=== PATIENT | male | born 1960 | race Caucasian/White ===

== ENCOUNTER 2018-12-29 13:53 | Observation (INO) | payer MEDICAID, SELFPAY ==
[2018-12-29] VITALS (13 sets, daily range): BP systolic 104–138; BP diastolic 62–107; PULSE 75–85; RESP 15–20; TEMP 36.6–36.8; O2SAT 93–100; BMI 31.3; BMI 30.2
--- NOTE | 2018-12-29 13:55 | CT_ITS ---
STUDY: CTA OF THE BRAIN REASON FOR EXAM: Male, 58 years old. Possible stroke. RADIATION DOSAGE (If Supplied By Facility): CTDIvol = ( 18.27 ) mGy, DLP = ( 847.55 ) mGycm TECHNIQUE: CT angiography was performed with a multi-detector CT scanner. Data acquisition was obtained from the skull base through the vertex following intravenous administration of 100Ml IV Isovue 370. MIP images were reconstructed from the axial data set. Post-processing of the angiographic images was performed, with multiplanar reformation and 3D reconstruction. Individualized dose optimization techniques were used for this CT. COMPARISON: None. FINDINGS: Normal bilateral petrous carotid arteries. There is calcified plaque formation of the right cavernous carotid artery, without a cross-sectional luminal stenosis. There is calcified plaque formation of the left cavernous carotid artery, without a cross-sectional luminal stenosis. Normal right A1 segments of the anterior cerebral artery. Normal left A1 segments of the anterior cerebral artery. Normal intact anterior communicating artery (ACOM). Normal bilateral A2 segments of the anterior cerebral arteries. Normal right M1 and M2 segments of the middle cerebral arteries, with a normal M1 bifurcation. Normal left M1 and M2 segments of the middle cerebral arteries, with a normal M1 bifurcation. Normal right posterior communicating artery (PCOM). Normal left posterior communicating artery (PCOM). Normal bilateral vertebral arteries. Normal basilar artery with a normal basilar bifurcation. The visualized bilateral superior cerebellar (SCA) arteries are normal. Normal bilateral P1, P2 and visualized P3 segments of the posterior cerebral arteries. There is no demonstrated aneurysm of the samish of [place]. There is no demonstrated abnormality of the visualized brain. CT/CTA Head W/WO Contrast IMPRESSION: Normal samish of [place] without a demonstrated aneurysm or hemodynamically significant stenosis. Electronically Signed: Osiel Zhong, at 14:35 EDT , Service support ,
--- NOTE | 2018-12-29 13:55 | EKG12_ITS ---
Test Reason : CP/STROKE TEAM Blood Pressure : / mmHG Vent. Rate : 079 BPM Atrial Rate : 079 BPM P-R Int : 142 ms QRS Dur : 128 ms QT Int : 406 ms P-R-T Axes : 018 -17 004 degrees QTc Int : 465 ms Normal sinus rhythm Right bundle branch block Abnormal ECG Confirmed by JARRET ROSA, HOLGER ([id number]), mapping editor VIOLETA MOURA ([id number]) on 12/30/2018 1:42:45 PM Referred By: TONNY Confirmed By:HOLGER WHEAT MD
--- NOTE | 2018-12-29 13:55 | CT_ITS ---
STUDY: CTA NECK WITH CONTRAST REASON FOR EXAM: Male, 58 years old. Possible stroke. RADIATION DOSAGE (If Supplied By Facility): CTDIvol = ( 18.27 ) mGy, DLP = ( 847.55 ) mGycm TECHNIQUE: CT angiography with multi-detector data acquisition was performed from the aortic arch to the skull base following intravenous administration of 100Ml IV Isovue 370. MIP images were reconstructed from the axial data set. Post-processing of the angiographic images was performed, with multiplanar reformation and 3D reconstruction. Individualized dose optimization techniques were used for this CT. COMPARISON: None. FINDINGS: AORTIC ARCH: Normal visualized aortic arch. Normal origins of the brachiocephalic, left common carotid, and left subclavian arteries. RIGHT CAROTID ARTERIES: Normal right common carotid artery (CCA). Normal right common carotid bulb. Normal origin of the right internal carotid (ICA) artery without a hemodynamically significant stenosis. Normal visualized cervical portion of the right internal carotid artery. Normal origin of the right external carotid artery (ECA). LEFT CAROTID ARTERIES: Normal left common carotid artery (CCA). Normal left common carotid bulb. Normal origin of the left internal carotid (ICA) artery without a hemodynamically significant stenosis. Normal visualized cervical portion of the left internal carotid artery. Normal origin of the left external carotid artery (ECA). VERTEBRAL ARTERIES: There is enhancement within the bilateral vertebral arteries with a small right vertebral artery, and a dominant left vertebral artery. CT/CTA Neck W/WO Contrast IMPRESSION: Normal bilateral cervical carotid and vertebral arteries. Electronically Signed: Osiel Zhong, at 14:36 EDT , Service support ,
--- NOTE | 2018-12-29 13:55 | CT_ITS ---
STUDY: CT BRAIN WITHOUT CONTRAST REASON FOR EXAM: Male, 58 years old. Stroke. RADIATION DOSAGE (If Supplied By Facility): CTDIvol = ( ) mGy, DLP = ( ) mGycm TECHNIQUE: Transaxial CT imaging of the brain was performed without administration of intravenous contrast material. Individualized dose optimization techniques were used for this CT. COMPARISON: No relevant priors. FINDINGS: Normal soft tissue structures. Normal calvarium. Normal size ventricles and extra-axial spaces for the patient's age. Normal white matter tracts of the cerebral hemispheres. Normal basal ganglia and thalami. Normal brainstem. Normal cerebellum. There is no intracranial hemorrhage. There are no findings of an acute ischemic infarction. Atherosclerotic calcification of the cavernous portions of the internal carotid arteries bilaterally. Mucosal thickening of the left maxillary sinus and right frontal sinus. CT/Brain/Head without Contrast IMPRESSION: Chronic involutional changes of the brain. N.B. : The above information has been verbally conveyed by Osiel Zhong to Sunil Paniagua on 12/29/2018 14:15:02 (ET). Electronically Signed: Osiel Zhong, at 14:16 EDT , Service support ,
--- NOTE | 2018-12-29 14:00 | ED.VIS.STROK ---
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 Symptoms per EMS for left facial droop left arm and leg weakness. When patient arrived he was slightly confused. Apparently he had slight chest pain upon presentation but now he is asymptomatic as far as chest pain. He has no back pain or tearing sensation. Prior similar symptoms: No Past Medical History - Allergies and Home Meds Allergies/Adverse Reactions: Allergies bee venom protein (honey bee) Allergy (Verified 12/29/18 14:41) Hives Primary Care Physician: Awilda Zamarripa,Out of [Primary Care Provider] - Past Medical History: - - Patient has no known medical problems, however apparently does not see a physician. When came into the room she told us that he has had prior TIAs. Lives: Spouse/ Significant Other Review of Systems General: Denies: Chills, Fever, Sweats Eyes: Denies: Visual changes - left, Visual changes - right, Visual changes - bilaterally, Diplopia ENT: Denies: Rhinorrhea, Sore throat Cardiovascular: Reports: Chest pain. Denies: Palpitations Respiratory: Denies: Dyspnea, Cough, Dyspnea on exertion Gastrointestinal: Denies: Abdominal pain, Nausea, Vomiting, Diarrhea, Melena, Hematochezia Genitourinary: Denies: Dysuria, Hematuria, Frequency Musculoskeletal: Denies: Back pain, Extremity Pain Skin: Denies: Rash, Wounds Neurological: Denies: Headache, Weakness, Numbness Psych: Denies: Depression [id number] Inital Vital Signs reviewed: Yes - NIHSS 1a Level of Consciousness: 0 1b LOC Questions (Score 2 if aphasic/stupor): 0 1c LOC Commands (Only score 1st attempt): 0 2 Best Gaze (If aphasic, use reflexive mvmts.): 0 3 Visual: 0 4 Facial Palsy: 1 5 Motor Arm Right (UN = amputation/fusion): 0 5 Motor Arm Left: 0 6 Motor Leg Right: 0 6 Motor Leg Left: 0 7 Limb ataxia (Only + if out of proportion): 0 8 Sensory (Aphasia/stupor=0 or 1, coma=2): 1 9 Best Language: 0 10 Dysarthria (mute, coma=2, intubated=UN): 0 11 Extinction and Inattention (only scored if +): 0 Total Score: 2 General: Well nourished, Well developed Head: Normocephalic Eyes: Perrl, EOMI ENT: Moist mucous membranes Neck: Supple Cardiovascular: Regular rate, Regular rhythm Respiratory: No distress, CTA bilaterally Abdomen: Soft Rectal: Deferred Back: Nontender Extremities: Nontender, No edema Skin: Normal color Neurological: Alert Psychological: Normal affect Diagnostic/Tx/Re-eval - Medical Decision Making Stroke Team Activated: Yes Reviewed Inclusion/Exclusion criteria: Yes Was Patient considered for Endovascular Intervention?: Yes IV Alteplase (t-PA) Administered: No - NIH NIH improved to a 1. Now he only has sensory deficits. No contraindications for IV Alteplase (t-PA) administration.: No Alteplase (t-PA) risks, benefits, alternative discussed: No After discussing with the stroke neurologist patient only has an NIH stroke scale of 1, it is only sensory deficit he had rapid improvement initially his NIH stroke scale was 6. At this time TPA is not warranted. \ Disposition admit in improved condition Critical care time (excluding procedures): 30-74 minutes ED Disposition - Plan for ED Patient: Diagnosis: CVA (cerebral vascular accident) Referrals: [facility] Doctor,Out of [Primary Care Provider] -
[2018-12-29 14:05] LABS: Bedside Glucose 99 mg/dL (70-110)
[2018-12-29 14:13] LABS: Absolute Lymphocyte Count 2.59 X10^3/ul (0.83-4.51); Absolute Neutrophil Count 6.7 X10^3/uL (2.0-7.7); Basophil# 0.02 X10^3/uL; Basophil% 0.2 % (0-1); Eosinophil# 0.26 X10^3/uL; Eosinophils% 2.4 % (0-5); Hematocrit 44.7 % (40-54); Hemoglobin 15.4 g/dl (13.0-16.5); Lymphocyte # 2.59 X10^3/ul (4.0); Mean Corp Hgb Conc 34.5 g/gl (32-36); Mean Corpuscular Hgb 30.7 pg (27.0-32.0); Mean Corpuscular Volume 89.2 fL (80-94); Mean Platelet Vol. 11.4 fl (6.2-12.0); Monocyte# 1.27 X10^3/uL; Monocyte% 11.8 % (0-10); Neutrophil # 6.65 X10^3/uL (2.7-7.7); Neutrophil % 61.5 % (47-70); Platelet Count 181 K/mm3 (150-450); RBC Distribution Width CV 13.7 % (11.6-14.6); RBC Distribution Width SD 44.5 fl (35.1-43.9); Red Blood Count 5.01 M/mm3 (4.6-6.2); White Blood Count 10.8 K/mm3 (4.4-11.0)
[2018-12-29 14:14] LABS: POSITIVE COUNT NO; POSITIVE DIFFERENTIAL NO; POSITIVE MORPHOLOGY NO
--- NOTE | 2018-12-29 14:15 | RAD_ITS ---
STUDY: X-RAY CHEST REASON FOR EXAM: Male, 58 years old. Left-sided numbness and weakness. TECHNIQUE: Single AP portable view of the chest. COMPARISON: None. FINDINGS: EKG electrodes are seen. Hyperinflation. The lungs are clear. There is no demonstrated pleural abnormality. Normal size heart. Normal mediastinum and bernadette. Normal visualized pulmonary arteries. There is atherosclerotic tortuosity of the aortic arch and descending thoracic aorta. There are diffuse degenerative changes of the visualized thoracic spine. Normal visualized ribs, clavicles, and shoulders. There is no demonstrated abnormality of the visualized soft tissue structures of the upper abdomen. RAD/Chest 1 View IMPRESSION: Hyperinflation. The lungs are clear. Electronically Signed: Osiel Zhong, at 15:21 EDT , Service support ,
[2018-12-29 14:29] LABS: Partial Thromboplast Time 29.9 Seconds (24.1-36.2)
[2018-12-29 14:32] LABS: Anion Gap 7 (5-15); BUN 12 mg/dL (7-18); BUN/Creat Ratio 10.2 RATIO (10-20); Calcium,Total 8.4 mg/dL (8.5-10.1); Chloride 108 mmol/L (98-107); Creatinine, Serum 1.18 mg/dL (0.70-1.30); EST Glomerular Filtration Rate 67 mL/min (>60); Est Glom Filt Rate - Afr Amer 81 mL/min (>60); Estimated Creatinine Clearance 68.74 ml/min; Glucose 87 mg/dL (74-106); Potassium 3.8 mmol/L (3.5-5.1); Sodium Level 140 mmol/L (136-145)
--- NOTE | 2018-12-29 15:36 | PCM.HP.STD ---
Problem List (1) TIA (transient ischemic attack) Status: Acute History of Present Illness Date of Admission: 12/29/18 Chief Complaint: Left face numbness, left-sided weakness The patient is a 58 year old M with no significant past medical history who does not see a primary doctor presented to the emergency room because of dizziness, left facial numbness as well as left-sided weakness. According to the patient's , she dropped him at his workplace around 9 AM and his boss called his around noon and told her that her is having strokelike symptoms. The patient himself does not remember exactly when the symptoms started. He stated that it started with being dizzy, lightheaded, associated with numbness and tingling on the left side of his face and shortly after, he felt that his left side both upper and lower extremities are weaker than normal. 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 He denied slurred speech or blurred vision. He denied syncope or presyncope. He complains of chest discomfort earlier but denies any more pain or discomfort since he came to the emergency room. Upon arrival to ED, his NIH stroke scale was 6. According to ER physician and within 30 minutes, his NIH stroke scale dropped down to 1. Telemetry stroke team was consulted and patient was not a candidate for TPA. Upon arrival, blood pressure was slightly elevated, but improved. Other vital signs are stable. Routine blood work was unremarkable. EKG revealed normal sinus rhythm and right bundle branch block, no acute ischemic changes. Troponin was negative. CT scan brain showed no acute findings, no infarct or hemorrhage. CTA of the head and neck revealed no evidence of hemodynamically significant vascular disease or stenosis. He is being admitted for TIA for evaluation. Past Medical History Allergies bee venom protein (honey bee) Allergy (Verified 12/29/18 14:41) Hives Home Medications: Ambulatory Orders Medication Instructions Recorded NK 12/29/18 Surgical History: noncontributory Lives: Spouse/ Significant Other Smoking Status: Current every day smoker Tobacco Use: Cigarettes Alcohol: Occasional Drugs: None - *Family History Maternal History Items: - - Reported family history of cancer. No family history of diabetes, hypertension, stroke or CAD. Paternal History Items: - - Reported family history of cancer. No family history of diabetes, hypertension, stroke or CAD. Review of Systems Constitutional: Reports: Weakness. Denies: Anorexia, Chills, Fever Eyes: Denies: Blurred vision, Double vision, Drainage, Redness HEENT: Denies: Difficulty Hearing, Ear Pain, Eye Pain, Nasal Congestion, Sore Throat Cardiovascular: Reports: Chest Tightness, Light Headedness. Denies: Chest Pain, Heaviness, Palpitations, Syncope Respiratory: Denies: Cough, Pleuritic Pain, Shortness of Breath, Sputum production, Wheezing Gastrointestinal: Denies: Abdominal Pain, Constipation, Diarrhea, Nausea, Vomiting Genitourinary: Denies: Dysuria, Frequency, Hematuria Musculoskeletal: Denies: Arm Pain, Back Pain, Foot Pain Skin: Denies: Dryness, Rash Neurological: Reports: Confusion, Focal weakness, Numbness, Tingling. Denies: Balance problems, Double vision, Change in Speech, Slurred speech, Headaches Psychiatric: Denies: Anxiety, Depression Endocrine: Denies: Change in Body Habitus, Polydipsia, Polyuria VTE Information - Inpt Only VTE Present on Admission: No VTE Mechan Device Prophylaxis: None VTE Pharm Prophylaxis ordered?: Yes - Physical Exam General: Alert, Oriented x3, Cooperative, No apparent distress HEENT: Atraumatic, PERRLA, EOMI, Normocephalic Oral: Moist Mucosa, No Gingival or Mucosal Lesions/ Ulcerations Neck: Supple, No JVD, Negative Carotid Bruits, Trachea Midline, Thyroid Normal Size and Texture Lungs: Clear to auscultation, No rhonchi, No wheeze, No rales, Diminished Cardiovascular: Regular rate, Regular Rhythm, Normal S1, Normal S2, PMI Normal Abdomen: Bowel Sounds Present, Soft, Non Tender, Non-Distended, No Hepato-splenomegaly Extremities: No clubbing, No cyanosis, No edema Skin: No rashes, No breakdown Lymphatic: No Cervical, Supraclavicular, or Inguinal Adenopathy Neurological: Cranial nerves II-XII grossly intact, Motor Exam 5/5 strength throughout Psych/Mental Status: Normal Affect, Flat Affect, Alert and oriented to time, place, person, mood and affect Vital Signs Temp Pulse Resp BP Pulse Ox 98 F 75 16 136/87 H 97 12/29/18 14:01 12/29/18 15:00 12/29/18 15:00 12/29/18 15:00 12/29/18 15:00 Oxygen Flow Rate (L/min) 2 Oxygen Delivery Method Room Air Weight: 218 lb 3.2 oz Body Mass Index (BMI) 31.3 Finger Stick Blood Glucose 99 Laboratory Tests Past 24 Hrs 12/29/18 12/29/18 12/29/18 14:02 14:02 14:02 WBC 10.8 RBC 5.01 Hgb 15.4 Hct 44.7 MCV 89.2 MCH 30.7 MCHC 34.5 RDW 13.7 RDW Differential 44.5 H Plt Count 181 MPV 11.4 Immature Gran % (Auto) 0.100 Neut % (Auto) 61.5 Lymph % (Auto) 24.0 [place] % (Auto) 11.8 H Eos % (Auto) 2.4 Baso % (Auto) 0.2 Absolute Neuts (auto) 6.7 Absolute Lymphs (auto) 2.59 Total Counted Not Reportable PT 13.0 INR 1.0 APTT 29.9 Sodium 140 Potassium 3.8 Chloride 108 H Carbon Dioxide 25.0 Anion Gap 7 BUN 12 Creatinine 1.18 Estim Creat Clear Calc 68.74 Est GFR (MDRD) Af Amer 81 Est GFR (MDRD) Non-Af 67 BUN/Creatinine Ratio 10.2 Glucose 87 Calcium 8.4 L Troponin I < 0.015 POC Glucose 12/29/18 14:00 POC Glucose 99 Clinical Impression(s) from Imaging Studies Brain CT 12/29/18 13:55 IMPRESSION: Chronic involutional changes of the brain. N.B. : The above information has been verbally conveyed by Osiel Zhong to Sunil Paniagua on 12/29/2018 14:15:02 (ET). Electronically Signed: Osiel Zhong, at 14:16 EDT , Service support , Head CTA 12/29/18 13:55 IMPRESSION: Normal [place] of [place] without a demonstrated aneurysm or hemodynamically significant stenosis. Electronically Signed: Osiel Zhong, at 14:35 EDT , Service support , Neck CTA 12/29/18 13:55 IMPRESSION: Normal bilateral cervical carotid and vertebral arteries. Electronically Signed: Osiel Zhong, at 14:36 EDT , Service support , Chest X-Ray 12/29/18 14:15 IMPRESSION: Hyperinflation. The lungs are clear. Electronically Signed: Osiel Zhong, at 15:21 EDT , Service support , Assessment/Plan All Active Problems CVA (cerebral vascular accident) (Acute) TIA (transient ischemic attack) (Acute) This is a 58 years old male patient presented to the emergency room because of left-sided paresthesia, left-sided weakness and is being admitted for TIA for evaluation. #1 TIA: Left-sided paresthesia and left-sided leg weakness. NIH stroke scale upon arrival to ED was 6, dropped down to 1 after 30 minutes. He was not a candidate of TPA after discussion with telemetry stroke team. CT scan brain showed no acute findings. CTA of the abdomen was unremarkable. EKG revealed normal sinus rhythm, RBBB, no acute ischemic changes or cardiac arrhythmias. Blood pressure slightly elevated, improved. Plan: Admit to PCU for observation, cardiac monitoring, serial cardiac enzymes because patient complained of transient chest discomfort/pain, NIH stroke scale, MRI brain, 2D echocardiogram, start baby aspirin, Lipitor, neurology consult, PT OT evaluation and treatment. #2 DVT prophylaxis: Subcu Lovenox. This note was generated with [employer] dictation software. It may contain incorrect words, spelling, and punctuation that were not noted in checking the note before signing. Code Visit OBSV E&M: 98240 Initial observation care L3
--- NOTE | 2018-12-29 15:38 | CASEMGMT ---
RN CM Assessment Introduced role of RN CM to patient and patient at bedside.? Patient is alert, oriented and able?to participate in RN CM Assessment. ?Care providers, pharmacy, and demographics verified. Presentation: EMS- Lt facial droop, Lt arm & Leg Weakness. Slight CP. Admit Dx: TIA Re-Admit: No Barriers/Issues: None. 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 States has not seen PCP in awhile. States does not like to see doctors. PCP: Escobar Faye Specialists: None Preferred Pharmacy: [facility] Insurance: Mark BARILLAS Rx Benefit:?Yes LNOK: Melissa Brown LW/HPOA: No, Declines offered information. Living Arrangements:?Lives with in a [place] home, no steps to enter. ADL?s: Independent with ambulation and ADLs Transportation: Patient drives, to transport on [place] DME: None HHC: None SNF: None Goal: Home, does not think will have any needs. Denies questions/concerns. 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 Aware CM remains available for any emerging needs. DC PLAN: Home with possible Outpatient PT if recommended as patient is not homebound. KEENAN Londono
--- NOTE | 2018-12-29 16:17 | ECHOCS_ITS ---
Reason For Study: TIA/CVA Procedure This was a 2D Doppler, Color Flow transthoracic echocardiogram. The study was technically difficult. Contrast injection was performed. Exam performed portable in patient room. Left Ventricle Normal LV size. Left ventricular systolic function is normal. The estimated ejection fraction is 65 %. No evidence for diastolic dysfunction. No regional wall motion abnormalities noted. Right Ventricle Normal RV size. Normal systolic function. Atria Normal left atrium. Normal right atrium. No doppler evidence for ASD. Bubble contrast study negative for right to left interatrial shunt. Mitral Valve There is no mitral annular calcification. Normal mitral valve. Trivial mitral valve insufficiency. Tricuspid Valve Normal tricuspid valve. Mild tricuspid valve insufficiency. Right ventricular systolic pressure estimated to be 36 mmHg. Aortic Valve Trisinus/trileaflet aortic valve. Mild focal aortic valve calcification. Mild (1+) aortic valve insufficiency. Pulmonic Valve The pulmonic valve is not well visualized. Great Vessels The aortic root is not well visualized. Pericardium/Pleural No pericardial effusion. Medication Diluted definity 3ml given slow IV push to enhance endocardial definition. Performed a rapid injection of agitated mix of 9 cc saline and 1cc air to assess for atrial septal defect. MMode/2D Measurements & Calculations LVIDd: 4.7 cm IVSd: 1.2 cm LAV(MOD-bp): 58.6 ml LVIDs: 2.5 cm LVPWd: 1.5 cm RVDd: 3.6 cm FS: 46.2 % LAV(MOD-bp) Indexed: 27.5 ml/m2 LAV(MOD-sp2): 56.1 ml LAV(MOD-sp4): 49.5 ml LA A4 area: 18.3 cm2 Time Measurements MV dec time: 0.24 sec Doppler Measurements & Calculations MV E max cameron: 73.5 cm/sec Lat Peak E' Cameron: 11.4 cm/sec Med Peak E' Cameron: 8.6 cm/sec MV A max cameron: 93.7 cm/sec E/E' lat: 6.5 E/E' med: 8.6 MV E/A: 0.78 MV V2 max: 96.5 cm/sec MV P1/2t max cameron: 89.5 cm/sec Ao V2 max: 150.2 cm/sec MV max P.7 mmHg MV P1/2t: 67.1 msec Ao max P.0 mmHg MV V2 mean: 55.1 cm/sec MV mean P.4 mmHg MV dec slope: 390.6 cm/sec2 MV V2 VTI: 31.7 cm MVA(P1/2t): 3.3 cm2 AI max cameron: 412.1 cm/sec LV V1 max: 128.3 cm/sec PA V2 max: 134.8 cm/sec AI max P.9 mmHg LV V1 max P.6 mmHg AI dec slope: 228.6 cm/sec2 AI P1/2t: 527.9 msec TR max cameron: 288.1 cm/sec TR max P.2 mmHg Interpretation Summary The study was technically difficult. Contrast injection was performed. Left ventricular systolic function is normal. The estimated ejection fraction is 65 %. Trivial mitral valve insufficiency. Mild tricuspid valve insufficiency. Mild focal aortic valve calcification. Mild (1+) aortic valve insufficiency. Right ventricular systolic pressure estimated to be 36 mmHg. No evidence for diastolic dysfunction. Bubble contrast study negative for right to left interatrial shunt. Ordering Physician: Tk Bynum Performed By: Fransisco Acevedo RCS
[2018-12-29] MEDS: 0.9% Normal Saline 1,000 ML 100 ML IV (16:46)
[2018-12-29 17:20] LABS: Thyroid Stim Hormone (TSH) 0.94 uIU/mL (0.358-3.74)
[2018-12-29] MEDS: Atorvastatin Calcium 80 MG Tablet PO (21:13)
[2018-12-30 01:01] VITALS: BMI 30.2
[2018-12-30 03:06] VITALS: PULSE 61
[2018-12-30 03:58] VITALS: BP 109/57; PULSE 69; RESP 21; TEMP 36.8; O2SAT 96
[2018-12-30] MEDS: 0.9% NaCl Peripheral Flush Adult/Peds IV ×2 (04:42→07:49)
--- NOTE | 2018-12-30 06:00 | MRI_ITS ---
STUDY: MRI BRAIN WITHOUT CONTRAST REASON FOR EXAM: Male, 58 years old. Dizziness, left-sided weakness, facial numbness and tingling. TECHNIQUE: Standardized multiplanar fat and water weighted pulse sequences were obtained. COMPARISON: CT 12/29/2018 FINDINGS: There is mild cerebral atrophy with widening of the extra-axial spaces and ventricular dilatation. There are a limited number of small white matter hyperintensities, distributed throughout the deep white matter tracts of the cerebral hemispheres, consistent with mild chronic white matter ischemic changes. There is no evidence for recent intracranial ischemia or other cause of cytotoxic edema on diffusion weighted imaging (DWI). Normal T2* images of the brain without demonstrated susceptibility artifact. There is no demonstrated hemosiderin stain. Normal bilateral basal ganglia. Normal thalami. There is no extra-axial fluid accumulation. Normal flow voids within the major intracranial circulation suggesting patency by spin echo criteria. Normal sella turcica, pituitary gland, infundibular stalk, optic chiasm and hypothalamus. Normal tectal plate and pineal gland. Normal midbrain, markie and medulla. Normal cerebellum. Normal basal cisterns. Normal bilateral temporal bones. Normal bilateral internal auditory canals. No demonstrated orbital abnormality, within the constraints of a routine brain study. Mucous retention cyst in the maxillary sinuses bilaterally. Normal calvarium and skull base. Normal visualized soft tissue structures. Normal visualized upper cervical spine. MRI/Brain without Contrast IMPRESSION: Involutional changes of the brain, as described above. No acute infarct. Electronically Signed: Joseph Chapa MD at 9:05 EDT Tel , Service support ,
[2018-12-30 07:14] VITALS: PULSE 56
[2018-12-30 07:24] VITALS: O2SAT 95
[2018-12-30] MEDS: LORazepam 2 MG/ML Syringe 1 MG IV (07:49)
[2018-12-30] MEDS: Aspirin 81 MG TAB.CHEW PO (07:51)
[2018-12-30 08:53] LABS: Cholesterol 189 mg/dL (200); High Density Lipoprotein 41 mg/dL; Triglycerides 111 mg/dL; Very Low Density Lipoprotein 22 mg/dL (5-40)
[2018-12-30 09:00] VITALS: BP 122/61; PULSE 68; RESP 16; TEMP 36.4; O2SAT 99
--- NOTE | 2018-12-30 10:07 | PCM.CONS.GEN ---
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 no trouble driving, no leg symptoms. no changes in speech, vision, or swallowing. doesnt recall previous episodes. reports symptoms improved over several hours. per er notes nihss was 6 then 2 then 1 however basis of 6 unclear. Per admit note: The patient is a 58 year old M with no significant past medical history who does not see a primary doctor presented to the emergency room because of dizziness, left facial numbness as well as left-sided weakness. According to the patient's , she dropped him at his workplace around 9 AM and his boss called his around noon and told her that her is having strokelike symptoms. The patient himself does not remember exactly when the symptoms started. He stated that it started with being dizzy, lightheaded, associated with numbness and tingling on the left side of his face and shortly after, he felt that his left side both upper and lower extremities are weaker than normal. 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 He denied slurred speech or blurred vision. He denied syncope or presyncope. He complains of chest discomfort earlier but denies any more pain or discomfort since he came to the emergency room. Upon arrival to ED, his NIH stroke scale was 6. According to ER physician and within 30 minutes, his NIH stroke scale dropped down to 1. Telemetry stroke team was consulted and patient was not a candidate for TPA. Upon arrival, blood pressure was slightly elevated, but improved. Other vital signs are stable. Routine blood work was unremarkable. EKG revealed normal sinus rhythm and right bundle branch block, no acute ischemic changes. Troponin was negative. CT scan brain showed no acute findings, no infarct or hemorrhage. CTA of the head and neck revealed no evidence of hemodynamically significant vascular disease or stenosis. He is being admitted for TIA for evaluation. Past Medical History Allergies bee venom protein (honey bee) Allergy (Verified 12/29/18 14:41) Hives Home Medications: Ambulatory Orders Medication Instructions Recorded NK 12/29/18 Surgical History: noncontributory Lives: Spouse/ Significant Other Smoking Status: Current every day smoker Tobacco Use: Cigarettes Alcohol: Occasional Drugs: None - *Family History Maternal History Items: - - Reported family history of cancer. No family history of diabetes, hypertension, stroke or CAD. Paternal History Items: - - Reported family history of cancer. No family history of diabetes, hypertension, stroke or CAD. Review of Systems Constitutional: Denies: Chills, Fever, Weight Change HEENT: Denies: Head Aches, Sinus Congestion, Sinus Drainage Cardiovascular: Denies: Chest Pain, Palpitations Respiratory: Denies: Cough, Shortness of breath at rest, Sputum production Gastrointestinal: Denies: Abdominal Pain, Nausea, Vomiting Genitourinary: Denies: Dysuria Musculoskeletal: Denies: Joint Pain, Joint Tenderness Skin: Denies: Rash, Wounds Neurological: Denies: Numbness, Tingling, Focal weakness Psychiatric: Denies: Anxiety, Depression, Homicidal Ideations, Suicidal Ideations Hematologic/ Lymphatic: Denies: Easy Bruising, Easy Bleeding Patient Problems: Active and Suspected Problems CVA (cerebral vascular accident) (Acute) - Physical Exam General: Alert, Oriented x3, Cooperative HEENT: Atraumatic, PERRLA, EOMI, Normocephalic Neurological: Cranial nerves II-XII grossly intact, Deep Tendon Reflexes 2+/4 and Symmetrical, Neuro grossly intact, Motor Exam 5/5 strength throughout, Muscle tone normal, Sensory exam intact to light touch and pain, Coordination normal, Gait narrow based and stable Psych/Mental Status: Normal Affect, Alert and oriented to time, place, person, mood and affect Vital Signs Temp Pulse Resp BP Pulse Ox 36.4 C L 68 16 122/61 H 99 12/30/18 09:00 12/30/18 09:00 12/30/18 09:00 12/30/18 09:00 12/30/18 09:00 Oxygen Flow Rate (L/min) 2 Oxygen Delivery Method Room Air Weight: 95.4 kg Body Mass Index (BMI) 30.2 Finger Stick Blood Glucose 99 Intake and Output for Last 24 Hours 12/28/18 12/29/18 12/30/18 23:59 23:59 23:59 Intake Total 1042 / 1042 456 / 456 Balance 1042 / 1042 456 / 456 Laboratory Tests Past 24 Hrs 12/29/18 12/29/18 12/29/18 14:02 14:02 14:02 WBC 10.8 RBC 5.01 Hgb 15.4 Hct 44.7 MCV 89.2 MCH 30.7 MCHC 34.5 RDW 13.7 RDW Differential 44.5 H Plt Count 181 MPV 11.4 Immature Gran % (Auto) 0.100 Neut % (Auto) 61.5 Lymph % (Auto) 24.0 Winston % (Auto) 11.8 H Eos % (Auto) 2.4 Baso % (Auto) 0.2 Absolute Neuts (auto) 6.7 Absolute Lymphs (auto) 2.59 Total Counted Not Reportable PT 13.0 INR 1.0 APTT 29.9 Sodium 140 Potassium 3.8 Chloride 108 H Carbon Dioxide 25.0 Anion Gap 7 BUN 12 Creatinine 1.18 Estim Creat Clear Calc 68.74 Est GFR (MDRD) Af Amer 81 Est GFR (MDRD) Non-Af 67 BUN/Creatinine Ratio 10.2 Glucose 87 Calcium 8.4 L Troponin I < 0.015 Triglycerides Cholesterol LDL Cholesterol VLDL Cholesterol HDL Cholesterol TSH 12/29/18 12/29/18 12/29/18 14:02 17:20 20:10 WBC RBC Hgb Hct MCV MCH MCHC RDW RDW Differential Plt Count MPV Immature Gran % (Auto) Neut % (Auto) Lymph % (Auto) Winston % (Auto) Eos % (Auto) Baso % (Auto) Absolute Neuts (auto) Absolute Lymphs (auto) Total Counted PT INR APTT Sodium Potassium Chloride Carbon Dioxide Anion Gap BUN Creatinine Estim Creat Clear Calc Est GFR (MDRD) Af Amer Est GFR (MDRD) Non-Af BUN/Creatinine Ratio Glucose Calcium Troponin I < 0.015 < 0.015 Triglycerides Cholesterol LDL Cholesterol VLDL Cholesterol HDL Cholesterol TSH 0.94 12/30/18 07:16 WBC RBC Hgb Hct MCV MCH MCHC RDW RDW Differential Plt Count MPV Immature Gran % (Auto) Neut % (Auto) Lymph % (Auto) Winston % (Auto) Eos % (Auto) Baso % (Auto) Absolute Neuts (auto) Absolute Lymphs (auto) Total Counted PT INR APTT Sodium Potassium Chloride Carbon Dioxide Anion Gap BUN Creatinine Estim Creat Clear Calc Est GFR (MDRD) Af Amer Est GFR (MDRD) Non-Af BUN/Creatinine Ratio Glucose Calcium Troponin I Triglycerides 111 Cholesterol 189 LDL Cholesterol 126 VLDL Cholesterol 22 HDL Cholesterol 41 TSH POC Glucose 12/29/18 14:00 POC Glucose 99 Current Home Med List Medication Instructions Recorded Confirmed Type NK 12/29/18 12/29/18 History Current Medications Generic Name Dose Route Start Last Admin Trade Name Freq PRN Reason Stop Dose Admin Acetaminophen 650 mg 12/29/18 16:17 Tylenol PO Q6H PRN PRN Mild pain 1-3/Temp > 100.7 F Aspirin 81 mg 12/30/18 08:00 12/30/18 07:51 Aspirin, Baby PO 81 mg DAILY@0800 CADEN Administration Atorvastatin Calcium 80 mg 12/29/18 22:00 12/29/18 21:13 Lipitor PO 80 mg QHS CADEN Administration Enoxaparin Sodium 40 mg 12/30/18 10:00 Lovenox SC DAILY CADEN Ondansetron HCl 4 mg 12/29/18 16:17 Zofran IV Q8H PRN PRN NAUSEA/VOMITING Sodium Chloride 10 - 40 ml 12/29/18 17:25 12/30/18 07:49 IV 10 ml UD PRN Administration SALINE FLUSH MRI reviewed, no acute. cta head and neck no significant stenosis by report echo report pending Assessment/Plan All Active Problems CVA (cerebral vascular accident) (Acute) TIA (transient ischemic attack) (Acute) pt reports dizzyness, left chest pain and sob. no evidence of brain injury on mri and no stenosis on cta. symptoms most consistent with cardiac or gi etiology suggest cardiac evaluation, troponins noted negative dc tob agree with asa/statin no further recs, please call if needed
[2018-12-30] MEDS: Enoxaparin 40 MG/0.4 ML Syringe SC (10:37)
--- NOTE | 2018-12-30 14:10 | DCINST_ITS ---
- Discharge Diagnoses Current Active Problems: Current Active and Chronic Problems CVA (cerebral vascular accident) (Acute) You will use the following diet at home:: No restrictions Your food should be the consistency of: Regular Your liquids should be the consistency of: Regular/Thin Discharge Activity: Return to Normal Activity Weight Bearing Status: Full weight bearing Additional Instructions: stop smoking Allergies/Adverse Reactions: Allergies bee venom protein (honey bee) Allergy (Verified 12/29/18 14:41) Hives Medications to take at Discharge Aspirin [Aspirin, Baby] 81 mg PO DAILY@0800 tab.chew 12/30/18 Atorvastatin Calcium [Lipitor] 40 mg PO DAILY #30 tab 12/30/18 The following prescriptions were given: Atorvastatin Calcium [Lipitor] 40 mg PO DAILY #30 tab Transmission Status: Pending to [id number] Primary Care Physician: Awilda Doctor,Out of [NON-STAFF] - Please follow up with your Primary Care Physician in: in 1-2 weeks Test Results: Test results from this visit will be discussed in further detail at your follow- up appointment, if applicable.
--- NOTE | 2018-12-30 14:15 | CASEMGMT ---
SW did not complete a PHQ-9 as patient Neurology does not feel patient had a Stroke or TIA. Sybil BASILIO MSW
[2018-12-30 14:41] VITALS: BP 109/48; PULSE 67; RESP 16; TEMP 36.7; O2SAT 95
--- NOTE | 2019-01-01 09:13 | PCM.DC.SUM ---
Discharge Date and Diagnosis Date of Admission: 12/29/18 Date of Discharge: 12/30/18 - Primary Discharge Diagnosis #1 left facial paresthesias-etiology unknown #2 left arm and leg weakness-etiology unknown #3 chest pain-etiology unknown Hospital Course and Treatment Operations: None Procedures: 2-D Echocardiogram Summary of Care Provided: The patient is a 58 year old M was seen in the emergency room at [facility] with chief complaint of left facial numbness, left arm weakness, left leg weakness, and chest discomfort. Work-up in the emergency room included a CT of the head which was unremarkable, and neck CTA was performed which was unremarkable, NIH stroke score initially was 6 but then declined to 1. A stroke alert had been called and the neurologist was contacted and did not feel patient was a candidate for TPA, he was placed in observation status on PCU and monitored, he had a echocardiogram performed which was unremarkable, he had a MRI of the brain which is unremarkable. Neurology saw the patient and recommended a cardiac work-up and did not feel that his symptoms were neurologic in nature. I discussed this with the patient and his who was present in his room during the time of my examination, patient understood the risks of not getting a stress test but decided he did not want a further work-up in the hospital and he would follow-up with his PCP. I asked that the patient take a baby aspirin a day and Lipitor for now. On 12/30/2018, patient was seen and examined: On examination he appeared in good health and spirits. Vital signs as documented. Skin warm and dry and without overt rashes. Neck without JVD. Lungs clear. Heart exam notable for regular rhythm, normal sounds and absence of murmurs, rubs or gallops. Abdomen unremarkable and without evidence of organomegaly, masses, or abdominal aortic enlargement. Extremities nonedematous. Neuro: Cranial nerves II through XII are grossly intact, no focal motor deficits were noted, sensation to light touch and pinprick intact. Psych: Patient is alert and oriented x3, he does not appear anxious or depressed On 12/30/2018, patient was seen and examined and felt to be in stable condition for discharge home - Physical Exam Vital Signs Temp Pulse Resp BP Pulse Ox 98.1 F 67 16 109/48 L 95 12/30/18 14:41 12/30/18 14:41 12/30/18 14:41 12/30/18 14:41 12/30/18 14:41 Oxygen Flow Rate (L/min) 2 Oxygen Delivery Method Room Air Weight: 95.4 kg Body Mass Index (BMI) 30.2 Finger Stick Blood Glucose 99 Intake and Output for Last 24 Hours 12/30/18 12/31/18 01/01/19 23:59 23:59 23:59 Intake Total 456 / 456 Balance 456 / 456 Discharge Activity: Return to Normal Activity Weight Bearing Status: Full weight bearing Home Medications: Medications to take at Discharge Aspirin [Aspirin, Baby] 81 mg PO DAILY@0800 tab.chew 12/30/18 Atorvastatin Calcium [Lipitor] 40 mg PO DAILY #30 tab 12/30/18 Following Prescrptions Were Given to Patient: Atorvastatin Calcium [Lipitor] 40 mg PO DAILY #30 tab Transmission Status: Received by [id number] Primary Care Physician: Awilda Doctor,Out of [NON-STAFF] - Please follow up with your Primary Care Physician in: in 1-2 weeks Disposition: Home Minutes spent on discharge:: 32 Patient Condition:: Stable Medical Necessity - Tobacco Use Smoking Status: Current every day smoker Tobacco Use: Cigarettes Meaningful Use Info Meaningful Use Diagnoses (Choose all that apply): None applicable Code Visit OBSV E&M: 59078 Observation care discharge
== END 2018-12-30 14:11 | disposition home or self-care (01) ==
LOC: ED 14:43 → PCU 16:12
PROVIDERS: Admitting Provider Hospitalist; Emergency Provider Emergency Medicine; Family Provider Family Medicine; PCP Family Medicine; Visit Provider Internal Medicine
DX: R53.1 Weakness (principal); R20.2 Paresthesia of skin; R07.89 Other chest pain; R20.0 Anesthesia of skin; R29.706 NIHSS score 6; R29.810 Facial weakness; F17.210 Nicotine dependence, cigarettes, uncomplicated
CPT/HCPCS: 36415; 70450; 70496; 70498; 70551; 71045; 80048; 80061; 82962; 84443; 84484; 85025; 85610; 85730; 93005; 93306; 96361; 96372; 96374; 99218; 99285; J7030; Q9957; Q9967; A4216; C8929; G0378; J3490

== ENCOUNTER 2021-07-25 12:53 | Emergency (ER) | payer MEDICAID, SELFPAY ==
[2021-07-25 12:54] VITALS: BP 127/78; PULSE 85; RESP 18; TEMP 36.1; O2SAT 97; BMI 30.7
--- NOTE | 2021-07-25 14:08 | EKG12_ITS ---
Test Reason : CP Blood Pressure : / mmHG Vent. Rate : 070 BPM Atrial Rate : 070 BPM P-R Int : 146 ms QRS Dur : 122 ms QT Int : 414 ms P-R-T Axes : 031 -42 016 degrees QTc Int : 447 ms Normal sinus rhythm Left axis deviation Right bundle branch block Abnormal ECG Confirmed by MARY JO ROSA, SHAY ([id number]), acquisitions editor RENE FRIEDMAN ([id number]) on 07/27/2021 10:58:09 AM Referred By: Confirmed By:CALI CAMARGO MD
--- NOTE | 2021-07-25 14:09 | EDS_ITS ---
HPI History of Present Illness Chief Complaint: Chest Pain Detail of Chief Complaint: Chest pain Informant: patient Onset/Context/Timing Location: Substernal Current Severity: 0/10 Maximum Severity: 4/10 Worsened By: Nothing Narrative Narrative: Patient presents to the emergency department complaint of chest discomfort that started around noon today. 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 Patient started feeling lightheaded and dizzy and developed chest tightness with radiation into the left arm. Patient felt short of breath with this. Patient denied nausea or vomiting. Per he has had similar episodes rarely in the past. No prior history of stenting. He had stress test but never had a catheterization. Patient denies recent travel or surgery. He denies history of PE or DVT. There is no family history of heart disease. Patient is a smoker. Prior Similar Symptoms: Yes CVD Risk Factors: Positive for Smoking [facility] Medical History (Updated 07/25/21 @ 16:[address] Rafaela Fischer, DO) Bronchitis Home Medications aspirin 81 mg PO DAILY@0800 tab.chew 12/30/18 [Rx Last Taken Unknown] Allergy/AdvReac Type Severity Reaction Status Date / Time bee venom protein (honey bee) Allergy Hives Verified 07/25/21 12:58 Surgical History (Updated 07/25/21 @ 13:12 by Reese Garduno) History of ankle surgery Hx of hernia repair Social History Smoking Status: Current every day smoker tobacco type: cigarettes ROS ROS ED Review of Systems ROS Unobtainable: other Constitutional Constitutional ED: Reports lethargy; Denies chills, fever(s), sweats or weight loss Eyes Eyes: Denies blurry vision, change in vision or diplopia ENT ENT ED: Denies rhinorrhea or sore throat Cardiovascular Cardiovascular: Reports chest pain and racing heartbeat; Denies orthopnea Respiratory/Chest Respiratory/Chest: Reports dyspnea and dyspnea on exertion; Denies cough, orthopnea or sputum Gastrointestinal Gastrointestinal: Denies abdominal pain, diarrhea, nausea or vomiting Genitourinary Genitourinary ED: Denies dysuria, hematuria or urinary frequency Musculoskeletal Musculoskeletal: Denies arthralgias, back pain, myalgias or neck pain Integumentary Denies abscess, Abrasions or rash Neurologic Neurologic: Reports other Details: Dizziness ; Denies headache(s) or weakness Psychiatric Psychiatric: Denies anxiety, depression or suicidal thoughts Endocrine Endocrinology: Denies polydipsia, polyphagia or polyuria Hematologic/Lymphatic Hematologic/Lymphatic: Denies easy bleeding, easy bruising or lymphadenopathy Allergic/Immunologic Allergic/Immunologic ED: Denies mouth swelling, tongue swelling or urticaria EXAM Physical Exam Const Vital Signs: 07/25/21 12:54 07/25/21 13:10 07/25/21 14:12 Temperature 97 F L Temperature Source Temporal Pulse Rate 85 Respiratory Rate 18 Respiratory Effort Normal Non-Labored Respiratory Pattern Normal Blood Pressure 127/78 H Blood Pressure Mean 94 Pulse Ox 97 Oxygen Delivery Method Room Air Room Air 07/25/21 16:18 Temperature Temperature Source Pulse Rate 78 Respiratory Rate 18 Respiratory Effort Respiratory Pattern Blood Pressure 145/81 H Blood Pressure Mean 102 Pulse Ox 97 Oxygen Delivery Method Room Air Positive well nourished and well developed General Appearance ED: well developed and NAD HEENT Reports TM's clear and moist mucous membranes normocephalic and atraumatic; Negative for trauma or tenderness Tympanic Membrane ED: Yes TM's clear Eyes PERRL and EOMs intact bilaterally General Eye ED: Negative for pale conjunctiva or scleral icterus Neck no lymphadenopathy, supple and no JVD General: Negative for tenderness Chest Wall inspection of chest normal and palpation of chest normal Chest: Negative for tenderness Resp normal respiratory effort and clear to auscultation bilaterally Effort and Inspection: Negative for respiratory distress or pain with movement Auscultation: Negative for rhonchi, wheezes or diminished lung sounds Cardio regular rate, regular rhythm, S1 normal heart sound, S2 normal heart sound and no murmurs Peripheral Pulses: pulses 2+ throughout GI normal to inspection, nondistended, normoactive bowel sounds, soft to palpation, non-tender, non-distended and no masses Back/Spine no CVA tenderness and no thoracic nor lumbar tenderness Extremity normal to inspection General Extremety ED: Negative for edema General Extremity: Negative for edema Neuro oriented x3, CN's II-XII intact bilaterally, no sensory deficits noted and gait normal Sensorium / Orientation: awake, alert, oriented to person, oriented to place and oriented to time Motor Exam: strength 5/5 throughout and strength abnormal Psych mental status grossly normal Skin no rashes or lesions noted and no wounds Heart Score History: Moderately Suspicious ECG: Nonspecific Repolarization Age: >45 - <65 years Risk Factors: 1 or 2 Risk Factors Troponin: </= Normal Limit Score: 4 MDM MDM MDM Narrative Medical decision making narrative: IV line established on arrival. Patient had received aspirin by EMS. Patient was pain-free on arrival and remained pain- free in the emergency department for greater than 3 hours. Patient had a normal initial troponin and also a delta 2-hour troponin that was normal. At this point his was questioning if this could be anxiety as patient was worried about the weather moving in. Etiology of his chest pain is unclear. His heart score is a 4. They are comfortable going home and following up with primary care physician potentially arranging for a outpatient stress test. My suspicion for acute coronary syndrome is low. Patient advised to return if worsening pain, increasing shortness of breath, exertional dyspnea, or conditions worsen anyway. Lab Data Attestation: I reviewed the patient's lab results. Labs: Laboratory Results - last 24 hr 07/25/21 07/25/21 07/25/21 13:10 13:10 16:15 WBC 10.4 RBC 4.76 Hgb 14.4 Hct 43.2 MCV 90.8 MCH 30.3 MCHC 33.3 RDW Std Deviation 44.4 H RDW Coeff of Billie 13.2 Plt Count 175 MPV 12.5 H Immature Gran % (Auto) 0.300 Neut % (Auto) 57.2 Lymph % (Auto) 25.9 [place] % (Auto) 11.9 H Eos % (Auto) 4.1 Baso % (Auto) 0.6 Absolute Neuts (auto) 6.0 Absolute Lymphs (auto) 2.70 Nucleated RBC % 0 Sodium 138 Potassium 4.1 Chloride 108 H Carbon Dioxide 26.0 Anion Gap 4 L BUN 12 Creatinine 1.09 Estim Creat Clear Calc 74.84 Est GFR (MDRD) Af Amer 88 Est GFR (MDRD) Non-Af 73 BUN/Creatinine Ratio 11.0 Glucose 94 Calcium 8.2 L Troponin I High Sens 8 10 Radiography Chest X-Ray - ED: 1 View Diagnostic Testing: Clinical Impression(s) from Imaging Studies Chest X-Ray 07/25/21 14:45 IMPRESSION: Mild increased linear markings at the left lung base suggestive of early atelectasis and/or scarring. Electronically Signed: Osiel Zhong MD at 15:06 EST , 1 view chest x-ray obtained interpreted by myself as no acute disease process. Radiology felt there were mild increased linear markings left lung base s uggestive of early atelectasis and or scarring. EKG Initial EKG: Attestation: I personally reviewed and interpreted this EKG as follows: Comments: Sinus rhythm with a rate of 70 bpm with right bundle branch block Discharge Plan Triage Chief Complaint: Chest Pain ED Provider: Rafaela Fischer Dx/Rx/DC Orders Clinical Impression: Chest pain Instructions: ED Chest Pain, Uncertain Cause Prescriptions: No Action aspirin 81 MG tablet,chewable 81 mg PO DAILY@0800 RF: 0 Primary Care Provider: López Faye Referrals: López Faye MD [Primary Care Provider] - 3-5 Days Disposition Disposition: Home, Self Care
[2021-07-25] MEDS: 0.9% Normal Saline 1,000 ML 150 ML IV (14:20)
[2021-07-25 14:27] LABS: Basophil# 0.06 X10^3/uL; Basophil% 0.6 % (0-1); Eosinophil# 0.43 X10^3/uL; Eosinophils% 4.1 % (0-5); Hematocrit 43.2 % (40-54); Hemoglobin 14.4 g/dL (13.0-16.5); Lymphocyte % 25.9 % (19-41); Mean Corp Hgb Conc 33.3 g/dL (32-36); Mean Corpuscular Hgb 30.3 pg (27.0-32.0); Mean Corpuscular Volume 90.8 fL (80-94); Mean Platelet Vol. 12.5 fl (6.2-12.0); Monocyte# 1.24 X10^3/uL; Monocyte% 11.9 % (0-10); NRBC Flagged by Analyzer 0 % (0-5); Neutrophil # 5.97 X10^3/uL (2.7-7.7); Neutrophil % 57.2 % (47-70); Platelet Count 175 K/mm3 (150-450); RBC Distribution Width CV 13.2 % (11.6-14.6); RBC Distribution Width SD 44.4 fl (35.1-43.9); Red Blood Count 4.76 M/mm3 (4.6-6.2); White Blood Count 10.4 K/mm3 (4.4-11.0)
[2021-07-25 14:41] LABS: Anion Gap 4 (5-15); BUN 12 mg/dL (7-18); Calcium,Total 8.2 mg/dL (8.5-10.1); Chloride 108 mmol/L (98-107); Creatinine, Serum 1.09 mg/dL (0.70-1.30); EST Glomerular Filtration Rate 73 mL/min (>60); Est Glom Filt Rate - Afr Amer 88 mL/min (>60); Estimated Creatinine Clearance 74.84 ml/min; Glucose 94 mg/dL (74-106); Potassium 4.1 mmol/L (3.5-5.1); Sodium Level 138 mmol/L (136-145); Troponin-I HS 8 pg/mL (3.0-78.0)
--- NOTE | 2021-07-25 14:45 | RAD_ITS ---
STUDY: X-RAY CHEST REASON FOR EXAM: Male, 60 years old. Chest pain TECHNIQUE: Single AP portable view of the chest. COMPARISON: Comparison is made with prior study dated 12/29/2018. FINDINGS: EKG electrodes are seen. Mild increased linear markings at the left lung base suggestive of underlying atelectasis and/or linear scarring. There is no demonstrated pleural abnormality. Normal size heart. Normal mediastinum and bernadette. Normal visualized pulmonary arteries. There is atherosclerotic calcification of the aortic arch with tortuosity. There are diffuse degenerative changes of the visualized thoracic spine. Normal visualized ribs, clavicles, and shoulders. There is no demonstrated abnormality of the visualized soft tissue structures of the upper abdomen. RAD/Chest 1 View (Portable) IMPRESSION: Mild increased linear markings at the left lung base suggestive of early atelectasis and/or scarring. Electronically Signed: Osiel Zhong MD at 15:06 EST ,
[2021-07-25 16:18] VITALS: BP 145/81; PULSE 78; RESP 18; O2SAT 97
[2021-07-25 16:37] LABS: Troponin-I HS 10 pg/mL (3.0-78.0)
[2021-07-25 17:00] VITALS: BP 142/74; PULSE 68; RESP 13; O2SAT 97
[2021-07-25 17:01] VITALS: BP 142/74; PULSE 18; RESP 13; O2SAT 97
== END 2021-07-25 17:07 | disposition home or self-care (01) ==
PROVIDERS: Emergency Provider Emergency Medicine; PCP Family Medicine; Visit Provider Emergency Medicine
DX: R07.9 Chest pain, unspecified (principal); F17.210 Nicotine dependence, cigarettes, uncomplicated; Z79.2 Long term (current) use of antibiotics
CPT/HCPCS: 36415; 71045; 80048; 84484; 85025; 93005; 96360; 96361; 99284; J7030; A4216